=== PATIENT | male | born 1990 | race Caucasian/White ===

== ENCOUNTER 2019-12-29 09:16 | Outpatient (CLI) | payer OTHER ==
[2019-12-29] MEDS ORDERED: GADOBUTROL 7.5 MMOL/7.5 ML VIAL ONE (09:39)
[2019-12-29] MEDS ORDERED: BUFFERED LIDOCAINE 10 ML SYRINGE IU ONE ×2 (10:15→10:36)
[2019-12-29] MEDS ORDERED: iohexoL-240 10 ML VIAL IVP ONE (10:41)
[2019-12-29] MEDS ORDERED: GADOBUTROL 7.5 MMOL/7.5 ML VIAL IVP ONE (10:43)
--- NOTE | 2019-12-29 11:45 | XRAY Report ---
PROCEDURE: Arthrogram Needle Placement INDICATIONS: RT SHOULDER PAIN CONTRAST: Ominpaque and Gadavist FLUOROSCOPY TIME: FLUORO TIME: 0.08 min and NUMBER IMAGES: 2 TECHNIQUE: The indications, alternatives, benefits, risks, and complications of the procedure were explained to the patient. Written informed consent was obtained and placed in the chart. The shoulder was examin ed fluoroscopically and a site for needle placement chosen for entry into the glenohumeral joint from an anterior approach. The skin was prepped and draped in the usual fashion, and 1% lidocaine infilt rated from skin down to joint capsule. A spinal needle was inserted into the glenohumeral joint, and a small amount of iodinated contrast media injected to confirm intra-articular placement of the need le tip. This was followed by approximately 12 mL dilute solution of a gadolinium containing MR contr ast agent. The needle was removed and a dressing was applied. The patient was given postprocedural instructions and sent to the MR suite for MR imaging. FINDINGS: A single fluoroscopic spot image demonstrates intra-articular location of injected iodinated contrast . IMPRESSION: Successful fluoroscopically guided administration of dilute Gadolinium solution into the shoulder ginger nt for MR arthrogram. No immediate complications. Reviewed by: Janice Braun MD, PhD on 12/29/2019 11:43 AM PDT Approved by: Janice Braun MD, PhD on 12/29/2019 11:43 AM PDT Station ID: [id number]
--- NOTE | 2019-12-29 12:36 | MRI Report ---
PROCEDURE: Arthrogram Shoulder RT INDICATIONS: RT SHOULDER PAIN CONTRAST: 12 mL of dilute intra-articular Gadolinium contrast solution TECHNIQUE: After the administration of 12 mL of dilute intra-articular Gadolinium contrast, oblique coronal T1 a nd T2 spin echo with fat saturation, oblique sagittal T1 spin echo with and without fat saturation, o blique sagittal T2 fast spin echo with fat saturation, axial T1 spin echo with fat saturation through the shoulder. COMPARISON: Fluoroscopic images from arthrogram injection performed earlier the same day FINDINGS: Image quality: Excellent. Rotator cuff: There is mild tendinosis of the distal supraspinatus and infraspinatus tendons. Teres minor tendon is intact. The subscapularis tendon is intact. There is no significant rotator cuff musc le atrophy. Bones and bursae: There is moderate trabecular bone injury in the greater tuberosity involving the s upraspinatus and infraspinatus tendon insertions with a questionable superimposed nondisplaced or inc omplete fracture line. Mild degenerative changes are seen in the acromioclavicular joint. The acromio n demonstrates conventional anatomy, without an os acromiale. A small amount of extravasated contras t material is seen in the subacromial/subdeltoid bursa related to the arthrogram injection. Capsule and soft tissues: There is irregularity of the inferior labrum with a small inferiorly displ aced flap in the axillary recess. The remainder of the labrum appears to be intact. No focal cartilag e defect is identified. The long head of the biceps tendon demonstrates normal location and morpholog y. The coracohumeral ligament is of normal thickness. No intra-articular bodies. Small amount of c ontrast material inferior to the axillary recess is most likely related to the arthrogram injection r ather than a capsular defect. IMPRESSION: 1. Moderate traction-related trabecular bone injury in the greater tuberosity involving the supraspi natus and infraspinatus tendon insertions with a probable associated nondisplaced or incomplete fract ure. Mild tendinosis is seen within the supraspinatus and infraspinatus tendons without a discrete ro tator cuff tendon tear. 2. Irregularity of the inferior labrum is compatible with labral tearing included a small inferiorly displaced flap component. Reviewed by: Miguel Oneal MD on 12/29/2019 12:35 PM PDT Approved by: Miguel Oneal MD on 12/29/2019 12:35 PM PDT Station ID: [id number]
== END 2019-12-29 09:17 | disposition home or self-care (01) ==
LOC: DI 09:16
PROVIDERS: ATTEND Orthopaedic Surgery
DX: R93.6 Abnormal findings on diagnostic imaging of limbs (principal)
CPT/HCPCS: 23350; 73222; 77002; A9585; Q9966